=== PATIENT | female | born 1940 | race Caucasian/White ===

== ENCOUNTER 2023-09-24 05:19 | Inpatient (IN) | payer OTHER, BC ==
[2023-09-24] MEDS ORDERED: ACETAMINOPHEN 325 MG TABLET (FP) ONE (05:54)
[2023-09-24] MEDS: ACETAMINOPHEN 500 MG TABLET (FP) PO ONE (06:03)
[2023-09-24 08:19] LABS: BASO % 0.1 % (0-2.0); EOS % 2.2 % (0-4.5); HEMATOCRIT 37.2 % (32.4-45.2); HEMOGLOBIN 12.6 GM/dL (10.7-15.3); LYMPH % 11.8 % (8-40); MCH 31.4 pg (25.7-33.7); MCHC 33.9 g/dl (32.0-36.0); MEAN CELL VOLUME 92.6 fl (80-96); MEAN PLT VOLUME 7.6 fl (7.5-11.1); MONO % 7.9 % (3.8-10.2); PLATELET COUNT 246 10^3/uL (134-434); RBC 4.02 M/mm3 (3.60-5.2); RDW 13.2 % (11.6-15.6); WHITE BLOOD COUNT 9.8 K/mm3 (4.0-10.0)
[2023-09-24 08:21] LABS: EPI CELLS 9 /uL (0-25.1); HYALINE CASTS 0 /uL (0-3.1); PH,URINE 7.5 (5.0-8.0); URINE APPEARANCE CLEAR; URINE BACTERIA 525 /uL (0-1359); URINE BILIRUBIN NEGATIVE (NEGATIVE); URINE COLOR YELLOW; URINE GLUCOSE (UA) NEGATIVE (NEGATIVE); URINE KETONE NEGATIVE (NEGATIVE); URINE LEUK ESTERASE TRACE (NEGATIVE); URINE NITRITE NEGATIVE (NEGATIVE); URINE PROTEIN NEGATIVE (NEGATIVE); URINE UROBILINOGEN 0.2 mg/dL (0.2-1.0); URINE WBC 9 /uL (0-25.8)
[2023-09-24 08:27] LABS: INR 1.05 (0.83-1.09); PROTHROMBIN TIME (PATIENT) 12.2 SEC (9.7-13.0)
[2023-09-24 08:29] LABS: ACTIVATED PTT 31.9 SECONDS (25.2-36.5)
[2023-09-24 08:42] LABS: POTASSIUM 4.1 mmol/L (3.5-5.1)
[2023-09-24 08:43] LABS: CALCIUM 8.6 mg/dL (8.5-10.1)
[2023-09-24 08:44] LABS: URINE RBC 24 /uL (0-23.9)
[2023-09-24 08:45] LABS: ALBUMIN 3.2 g/dl (3.4-5.0); BLOOD UREA NITROGEN 19.3 mg/dL (7-18); MAGNESIUM 2.1 mg/dL (1.8-2.4)
[2023-09-24 08:48] LABS: CREATININE 0.8 mg/dL (0.55-1.3)
[2023-09-24 08:49] LABS: TOT PROT 6.5 g/dl (6.4-8.2)
[2023-09-24 08:50] LABS: BILIRUBIN,TOTAL 0.4 mg/dL (0.2-1)
[2023-09-24] MEDS ORDERED: AZITHROMYCIN IVPB 500 MG/250 ML BAG IVPB ONE (10:07)
[2023-09-24] MEDS ORDERED: CEFTRIAXONE 1 GM/50 ML BAG ONE (10:07)
[2023-09-24] MEDS: CEFTRIAXONE 1,000 MG in DEXTROSE 5%-WATER - 50 ML IVPB ONE (10:15)
[2023-09-24] MEDS ORDERED: ACETAMINOPHEN 325 MG TABLET (FP) PO PRN (10:27)
[2023-09-24] MEDS: AZITHROMYCIN IVPB 500 MG in DEXTROSE 5%-WATER - 250 ML IVPB ONE (11:02)
[2023-09-24] MEDS ORDERED: PANTOPRAZOLE 40 MG TABLET PO ONE (11:08)
[2023-09-24] MEDS ORDERED: ENOXAPARIN NA (PORCINE) 40 MG/0.4 ML DISP.SYRIN SQ ONE (11:08)
[2023-09-24] MEDS ORDERED: LOSARTAN POTASSIUM 50 MG TABLET ONE (11:08)
[2023-09-24] MEDS: PANTOPRAZOLE 40 MG TABLET PO SCH (11:12)
[2023-09-24] MEDS: ENOXAPARIN NA (PORCINE) 40 MG/0.4 ML DISP.SYRIN SQ SCH (11:12)
[2023-09-24] MEDS: LOSARTAN POTASSIUM 50 MG TABLET PO ONE ×2 (11:13→14:58)
[2023-09-24 12:27] VITALS: BMI 22.0
[2023-09-24] MEDS ORDERED: CEFTRIAXONE 1 GM in DEXTROSE 5%-WATER - 50 ML IVPB SCH (15:30)
[2023-09-25] MEDS: LOSARTAN POTASSIUM 50 MG TABLET PO SCH (10:21)
[2023-09-25] MEDS: AZITHROMYCIN IVPB 500 MG/250 ML BAG IVPB SCH (10:22)
[2023-09-25] MEDS: CEFTRIAXONE 1 GM in DEXTROSE 5%-WATER - 50 ML IVPB SCH (10:22)
[2023-09-27] MEDS: AZITHROMYCIN 250 MG TABLET PO SCH (09:49)
[2023-09-27] MEDS: CEFUROXIME AXETIL 250 MG TABLET PO SCH (13:17)
[2023-09-28 07:14] VITALS: BP 141/69; PULSE 71; RESP 18; TEMP 97.8
== END 2023-09-28 12:54 | disposition home or self-care (01) | DRG 195 ==
LOC: JER 05:19 → JERBED 10:12 → J7W 11:58
PROVIDERS: ADMIT Internal Medicine; ATTEND Internal Medicine
DX: J18.9 Pneumonia, unspecified organism (principal); E78.5 Hyperlipidemia, unspecified; I10 Essential (primary) hypertension; K21.9 Gastro-esophageal reflux disease without esophagitis; M62.81 Muscle weakness (generalized); F03.90 Unspecified dementia, unspecified severity, without behavioral disturbance, psychotic disturbance, mood disturbance, and anxiety; I35.0 Nonrheumatic aortic (valve) stenosis; E03.9 Hypothyroidism, unspecified; M25.551 Pain in right hip; R91.1 Solitary pulmonary nodule; Y92.092 Bedroom in other non-institutional residence as the place of occurrence of the external cause; W17.89XA Other fall from one level to another, initial encounter; Y99.9 Unspecified external cause status
CPT/HCPCS: 0241U-QW; 36415; 70450-TC; 71045-TC-FY; 71250-TC; 72125-TC; 72170-TC-FY; 73521-TC-FY; 80053; 81003; 83605; 83735; 84484; 85025; 85610; 85730; 87040; 87086; 87186; 87899; 93005; 93010; 93306-TC; 97116-GP; 97161-GP; 99285-25

== ENCOUNTER 2023-10-31 18:37 | Emergency (ER) | payer OTHER, BC ==
[2023-10-31 18:55] VITALS: BP 164/84; PULSE 76; RESP 19; TEMP 98.5; BMI 23.3
[2023-10-31] MEDS ORDERED: ACETAMINOPHEN 500 MG TABLET (FP) ONE (20:55)
[2023-10-31] MEDS: ACETAMINOPHEN 500 MG TABLET (FP) PO ONE (21:01)
== END 2023-11-01 02:53 ==
LOC: JER 18:37
DX: M25.551 Pain in right hip (principal); M54.2 Cervicalgia; W01.0XXA Fall on same level from slipping, tripping and stumbling without subsequent striking against object, initial encounter
CPT/HCPCS: 70450-TC; 72125-TC; 72170-TC-FY; 73521-TC-FY; 99284-25

== ENCOUNTER 2024-02-23 14:44 | Inpatient (IN) | payer OTHER, BC ==
[2024-02-23] MEDS ORDERED: ACETAMINOPHEN 325 MG TABLET (FP) ONE (15:45)
[2024-02-23 16:02] VITALS: BMI 21.9
[2024-02-23] MEDS: ACETAMINOPHEN 500 MG TABLET (FP) PO ONE (16:37)
[2024-02-23 17:08] LABS: BASO % 0.4 % (0-2.0); EOS % 3.5 % (0-4.5); HEMATOCRIT 38.7 % (32.4-45.2); HEMOGLOBIN 12.9 GM/dL (10.7-15.3); LYMPH % 14.4 % (8-40); MCH 31.4 pg (25.7-33.7); MCHC 33.4 g/dl (32.0-36.0); MONO % 11.5 % (3.8-10.2); NEUT % 70.2 % (42.8-82.8); PLATELET COUNT 274 10^3/uL (134-434); RBC 4.12 M/mm3 (3.60-5.2); RDW 13.1 % (11.6-15.6); WHITE BLOOD COUNT 11.4 K/mm3 (4.0-10.0)
[2024-02-23 17:21] LABS: POTASSIUM 5.1 mmol/L (3.5-5.1)
[2024-02-23 17:23] LABS: ALBUMIN 3.5 g/dl (3.4-5.0); BLOOD UREA NITROGEN 22.2 mg/dL (7-18)
[2024-02-23 17:26] LABS: CREATININE 0.8 mg/dL (0.55-1.3)
[2024-02-23 17:28] LABS: BILIRUBIN,TOTAL 0.8 mg/dL (0.2-1); TOT PROT 7.5 g/dl (6.4-8.2)
[2024-02-23 17:32] LABS: EPI CELLS 5 /uL (0-25.1); HYALINE CASTS 0 /uL (0-3.1); PH,URINE 6.5 (5.0-8.0); URINE APPEARANCE CLEAR; URINE BACTERIA 11 /uL (0-1359); URINE BILIRUBIN NEGATIVE (NEGATIVE); URINE COLOR YELLOW; URINE GLUCOSE (UA) NEGATIVE (NEGATIVE); URINE KETONE NEGATIVE (NEGATIVE); URINE LEUK ESTERASE 1+ (NEGATIVE); URINE NITRITE NEGATIVE (NEGATIVE); URINE PROTEIN NEGATIVE (NEGATIVE); URINE RBC 45 /uL (0-23.9); URINE WBC 174 /uL (0-25.8)
[2024-02-23] MEDS: LACTATED RINGERS SOLUTION 1,000 ML/1,000 ML INFUS.BAG IV SCH (17:50)
[2024-02-23] MEDS ORDERED: CEFTRIAXONE 1 GM/50 ML BAG ONE (18:25)
[2024-02-23] MEDS: CEFTRIAXONE 1,000 MG in DEXTROSE 5%-WATER - 50 ML IVPB ONE (18:41)
[2024-02-23] MEDS ORDERED: D5-1/2NS+10 MEQ KCL - 10 MEQ/1,000 ML INFUS.BAG IV SCH (19:45)
[2024-02-23] MEDS: D5-1/2NS+10 MEQ KCL - 10 MEQ/1,000 ML INFUS.BAG IV SCH (20:06)
[2024-02-23] MEDS ORDERED: LIDOCAINE 5% TOPICAL PATCH ONE (20:07)
[2024-02-23] MEDS ORDERED: PANTOPRAZOLE 40 MG TABLET PO ONE (20:07)
[2024-02-23] MEDS: LIDOCAINE 5% TOPICAL PATCH TP SCH (20:10)
[2024-02-23] MEDS: PANTOPRAZOLE 40 MG TABLET PO SCH (20:10)
[2024-02-23] MEDS ORDERED: LISINOPRIL 10 MG TABLET PO SCH (21:06)
[2024-02-23] MEDS: ACETAMINOPHEN 325 MG TABLET (FP) PO PRN (22:49)
[2024-02-23] MEDS: MIRTAZAPINE 15 MG TABLET (FP) PO SCH (22:50)
[2024-02-23] MEDS: ATORVASTATIN CA 20 MG TABLET (FP) PO SCH (22:51)
[2024-02-23] MEDS: LIDOCAINE PATCH REMOVAL MC SCH (22:51)
[2024-02-23] MEDS: MELATONIN 1 MG TABLET PO SCH (22:51)
[2024-02-23] MEDS: MEMANTINE HCL 10 MG TABLET (FP) PO SCH (22:51)
[2024-02-23] MEDS: RIVASTIGMINE 9.5 MG/24 HOURS TRANSDERMAL PATCH TD SCH (23:01)
[2024-02-23] MEDS: METOPROLOL TARTRATE 5 MG/5 ML VIAL IVPUSH PRN (23:14)
[2024-02-24] MEDS: LEVOTHYROXINE NA 50 MCG TABLET (FP) PO SCH (06:35)
[2024-02-24] MEDS: LACOSAMIDE 100 MG TABLET PO SCH (08:12)
[2024-02-24 08:16] LABS: BASO % 0.5 % (0-2.0); EOS % 4.5 % (0-4.5); HEMATOCRIT 39.2 % (32.4-45.2); HEMOGLOBIN 13.3 GM/dL (10.7-15.3); LYMPH % 10.8 % (8-40); MCH 31.9 pg (25.7-33.7); MCHC 33.8 g/dl (32.0-36.0); MEAN CELL VOLUME 94.2 fl (80-96); MEAN PLT VOLUME 7.8 fl (7.5-11.1); MONO % 11.1 % (3.8-10.2); NEUT % 73.1 % (42.8-82.8); PLATELET COUNT 263 10^3/uL (134-434); RBC 4.17 M/mm3 (3.60-5.2); RDW 12.4 % (11.6-15.6); WHITE BLOOD COUNT 10.1 K/mm3 (4.0-10.0)
[2024-02-24 08:21] LABS: POTASSIUM 3.7 mmol/L (3.5-5.1)
[2024-02-24 08:23] LABS: CALCIUM 8.8 mg/dL (8.5-10.1)
[2024-02-24 08:24] LABS: BLOOD UREA NITROGEN 15.9 mg/dL (7-18)
[2024-02-24 08:36] LABS: CREATININE 0.6 mg/dL (0.55-1.3)
[2024-02-24 09:26] LABS: ERYTHROCYTE SEDIMENTATION RATE 20 mm/hr (0-30)
[2024-02-24] MEDS ORDERED: metoPROLOL SUCCINATE 25 MG TAB.SR.24H (FP) PO SCH (10:00)
[2024-02-24] MEDS ORDERED: LISINOPRIL 10 MG TABLET PO SCH (10:00)
[2024-02-24] MEDS: ASPIRIN COATED 81 MG TABLET.EC PO SCH (10:15)
[2024-02-24] MEDS: LISINOPRIL 20 MG TABLET PO SCH (10:15)
[2024-02-24] MEDS: HEPARIN NA (PORCINE) 5,000 UNITS/ML 1ML VIAL SQ SCH (10:15)
[2024-02-24] MEDS: metoPROLOL SUCCINATE 25 MG TAB.SR.24H (FP) PO SCH (10:16)
[2024-02-24] MEDS: LACOSAMIDE 50 MG TABLET PO SCH (10:16)
[2024-02-24] MEDS: CEFTRIAXONE 1 GM in DEXTROSE 5%-WATER - 50 ML IVPB SCH (17:02)
[2024-02-24] MEDS: POTASSIUM CHLORIDE 10 MEQ in DEXTROSE 5%-0.45% SALINE 1,000 ML IV SCH (18:27)
[2024-02-24] MEDS: D5-1/2NS+10 MEQ KCL - 10 MEQ/1,000 ML INFUS.BAG IV SCH (19:14)
[2024-02-24] MEDS: DEXTROSE 5%-0.45% SALINE 1,000 ML with POTASSIUM CHLORIDE 10 MEQ IV SCH (19:15)
[2024-02-25] MEDS: LACOSAMIDE 100 MG TABLET PO SCH (11:26)
[2024-02-25] MEDS: LISINOPRIL 5 MG TABLET PO ONE (11:26)
[2024-02-25] MEDS ORDERED: D5-1/2NS+10 MEQ KCL - 10 MEQ/1,000 ML INFUS.BAG IV SCH (12:00)
[2024-02-25 12:03] LABS: BASO % 0.3 % (0-2.0); EOS % 3.8 % (0-4.5); HEMATOCRIT 38.7 % (32.4-45.2); HEMOGLOBIN 13.2 GM/dL (10.7-15.3); LYMPH % 13.1 % (8-40); MCH 31.7 pg (25.7-33.7); MCHC 34.1 g/dl (32.0-36.0); MEAN CELL VOLUME 93.1 fl (80-96); MEAN PLT VOLUME 7.3 fl (7.5-11.1); MONO % 12.9 % (3.8-10.2); NEUT % 69.9 % (42.8-82.8); PLATELET COUNT 294 10^3/uL (134-434); RBC 4.15 M/mm3 (3.60-5.2); WHITE BLOOD COUNT 10.6 K/mm3 (4.0-10.0)
[2024-02-25 12:28] LABS: POTASSIUM 3.9 mmol/L (3.5-5.1)
[2024-02-25 12:30] LABS: BLOOD UREA NITROGEN 14.7 mg/dL (7-18); CALCIUM 8.8 mg/dL (8.5-10.1)
[2024-02-25 12:34] LABS: CREATININE 0.7 mg/dL (0.55-1.3)
[2024-02-25] MEDS: D5-1/2NS+10 MEQ KCL - 10 MEQ/1,000 ML INFUS.BAG IV SCH (13:38)
[2024-02-25] MEDS: POLYETHYLENE GLYCOL (HEALTHYLAX) 3350 17 GM PACKET PO SCH (18:05)
[2024-02-25] MEDS: DOCUSATE SODIUM 100 MG CAPSULE (FP) PO SCH (21:41)
[2024-02-26 07:25] LABS: BASO % 0.4 % (0-2.0); EOS % 1.7 % (0-4.5); HEMOGLOBIN 14.2 GM/dL (10.7-15.3); LYMPH % 7.5 % (8-40); MCH 32.2 pg (25.7-33.7); MCHC 34.5 g/dl (32.0-36.0); MEAN CELL VOLUME 93.2 fl (80-96); MEAN PLT VOLUME 7.7 fl (7.5-11.1); MONO % 10.8 % (3.8-10.2); NEUT % 79.6 % (42.8-82.8); PLATELET COUNT 291 10^3/uL (134-434); RDW 12.7 % (11.6-15.6); WHITE BLOOD COUNT 13.4 K/mm3 (4.0-10.0)
[2024-02-26 07:31] LABS: POTASSIUM 3.9 mmol/L (3.5-5.1)
[2024-02-26 07:33] LABS: CALCIUM 8.7 mg/dL (8.5-10.1)
[2024-02-26 07:37] LABS: CREATININE 0.8 mg/dL (0.55-1.3)
[2024-02-26] MEDS: LISINOPRIL 20 MG, LISINOPRIL 10 MG PO SCH (09:27)
[2024-02-26] MEDS ORDERED: LISINOPRIL 20 MG TABLET PO SCH (10:00)
[2024-02-26] MEDS ORDERED: LISINOPRIL 20 MG, LISINOPRIL 10 MG PO SCH (10:00)
[2024-02-27 07:22] LABS: BASO % 0.4 % (0-2.0); EOS % 1.1 % (0-4.5); HEMATOCRIT 38.2 % (32.4-45.2); LYMPH % 15.2 % (8-40); MCH 31.9 pg (25.7-33.7); MCHC 34.1 g/dl (32.0-36.0); MEAN CELL VOLUME 93.5 fl (80-96); MEAN PLT VOLUME 7.4 fl (7.5-11.1); MONO % 14.6 % (3.8-10.2); NEUT % 68.7 % (42.8-82.8); PLATELET COUNT 296 10^3/uL (134-434); RBC 4.08 M/mm3 (3.60-5.2); RDW 12.5 % (11.6-15.6); WHITE BLOOD COUNT 13.3 K/mm3 (4.0-10.0)
[2024-02-27] MEDS: hydrALAZINE HCL 10 MG TABLET PO SCH (14:20)
[2024-02-28] MEDS ORDERED: LIDOCAINE PATCH REMOVAL MC SCH (00:41)
[2024-02-28] MEDS ORDERED: METOPROLOL TARTRATE 5 MG/5 ML VIAL IVPUSH PRN (00:41)
[2024-02-28] MEDS: LEVOTHYROXINE NA 50 MCG TABLET (FP) PO SCH (06:19)
[2024-02-28] MEDS: PANTOPRAZOLE 40 MG TABLET PO SCH (06:19)
[2024-02-28] MEDS: LACOSAMIDE 50 MG TABLET PO SCH (10:33)
[2024-02-28] MEDS: CEFTRIAXONE 1 GM in DEXTROSE 5%-WATER - 50 ML IVPB SCH (10:33)
[2024-02-28] MEDS: LISINOPRIL 20 MG TABLET PO SCH (10:34)
[2024-02-28] MEDS: MEMANTINE HCL 10 MG TABLET (FP) PO SCH (10:34)
[2024-02-28] MEDS: ASPIRIN COATED 81 MG TABLET.EC PO SCH (10:34)
[2024-02-28] MEDS: hydrALAZINE HCL 25 MG TABLET (FP) PO SCH (10:35)
[2024-02-28] MEDS: HEPARIN NA (PORCINE) 5,000 UNITS/ML 1ML VIAL SQ SCH (10:35)
[2024-02-28] MEDS: LIDOCAINE 5% TOPICAL PATCH TP SCH (10:38)
[2024-02-28 10:47] LABS: BASO % 0.2 % (0-2.0); HEMATOCRIT 37.6 % (32.4-45.2); HEMOGLOBIN 12.8 GM/dL (10.7-15.3); MCH 31.5 pg (25.7-33.7); MEAN CELL VOLUME 92.6 fl (80-96); MEAN PLT VOLUME 7.7 fl (7.5-11.1); MONO % 13.5 % (3.8-10.2); NEUT % 82.3 % (42.8-82.8); PLATELET COUNT 311 10^3/uL (134-434); RBC 4.06 M/mm3 (3.60-5.2); RDW 12.2 % (11.6-15.6); WHITE BLOOD COUNT 18.1 K/mm3 (4.0-10.0)
[2024-02-28 11:45] LABS: BLOOD UREA NITROGEN 15.7 mg/dL (7-18); CALCIUM 8.8 mg/dL (8.5-10.1)
[2024-02-28 11:49] LABS: CREATININE 0.7 mg/dL (0.55-1.3)
[2024-02-28] MEDS: MELATONIN 1 MG TABLET PO SCH (21:25)
[2024-02-28] MEDS: ATORVASTATIN CA 20 MG TABLET (FP) PO SCH (21:26)
[2024-02-28] MEDS: MIRTAZAPINE 15 MG TABLET (FP) PO SCH (21:26)
[2024-02-28] MEDS: RIVASTIGMINE 9.5 MG/24 HOURS TRANSDERMAL PATCH TD SCH (21:30)
[2024-02-28] MEDS: LIDOCAINE PATCH REMOVAL MC SCH (23:00)
[2024-02-29 08:40] LABS: BASO % 0.5 % (0-2.0); EOS % 0.3 % (0-4.5); HEMATOCRIT 35.4 % (32.4-45.2); LYMPH % 9.5 % (8-40); MCH 31.5 pg (25.7-33.7); MCHC 33.8 g/dl (32.0-36.0); MEAN CELL VOLUME 93.2 fl (80-96); MEAN PLT VOLUME 7.6 fl (7.5-11.1); MONO % 14.4 % (3.8-10.2); NEUT % 75.3 % (42.8-82.8); PLATELET COUNT 322 10^3/uL (134-434); RDW 12.2 % (11.6-15.6); WHITE BLOOD COUNT 15.2 K/mm3 (4.0-10.0)
[2024-02-29] MEDS: CEFUROXIME AXETIL 500 MG TABLET PO SCH (10:15)
[2024-03-01] MEDS: ACETAMINOPHEN 325 MG TABLET (FP) PO PRN (06:49)
[2024-03-01 10:25] LABS: BASO % 0.4 % (0-2.0); EOS % 0.6 % (0-4.5); HEMATOCRIT 36.5 % (32.4-45.2); HEMOGLOBIN 12.3 GM/dL (10.7-15.3); LYMPH % 7.6 % (8-40); MCH 31.7 pg (25.7-33.7); MCHC 33.8 g/dl (32.0-36.0); MEAN CELL VOLUME 93.8 fl (80-96); MEAN PLT VOLUME 7.5 fl (7.5-11.1); MONO % 11.6 % (3.8-10.2); NEUT % 79.8 % (42.8-82.8); PLATELET COUNT 403 10^3/uL (134-434); RBC 3.89 M/mm3 (3.60-5.2); RDW 12.4 % (11.6-15.6); WHITE BLOOD COUNT 12.9 K/mm3 (4.0-10.0)
[2024-03-02 09:26] LABS: EPI CELLS >36 /uL (0-25.1); HYALINE CASTS 2 /uL (0-3.1); PH,URINE 6.5 (5.0-8.0); URINE APPEARANCE CLOUDY; URINE BACTERIA 2168 /uL (0-1359); URINE BILIRUBIN NEGATIVE (NEGATIVE); URINE COLOR YELLOW; URINE GLUCOSE (UA) NEGATIVE (NEGATIVE); URINE KETONE NEGATIVE (NEGATIVE); URINE LEUK ESTERASE TRACE (NEGATIVE); URINE NITRITE NEGATIVE (NEGATIVE); URINE PROTEIN TRACE (NEGATIVE); URINE RBC 20 /uL (0-23.9); URINE WBC 14 /uL (0-25.8)
[2024-03-02 09:49] LABS: URINE CRYSTALS PRESENT /hpf; YEAST NOT PRESENT (NEGATIVE)
[2024-03-02 09:55] LABS: BASO % 0.3 % (0-2.0); EOS % 3.4 % (0-4.5); HEMOGLOBIN 12.4 GM/dL (10.7-15.3); LYMPH % 10.3 % (8-40); MCH 31.4 pg (25.7-33.7); MCHC 33.5 g/dl (32.0-36.0); MEAN CELL VOLUME 93.5 fl (80-96); MEAN PLT VOLUME 7.1 fl (7.5-11.1); PLATELET COUNT 400 10^3/uL (134-434); RBC 3.95 M/mm3 (3.60-5.2); RDW 12.8 % (11.6-15.6); WHITE BLOOD COUNT 10.6 K/mm3 (4.0-10.0)
[2024-03-03 04:33] VITALS: RESP 20
[2024-03-03 08:45] LABS: BASO % 0.8 % (0-2.0); EOS % 8.5 % (0-4.5); HEMATOCRIT 36.2 % (32.4-45.2); HEMOGLOBIN 12.4 GM/dL (10.7-15.3); LYMPH % 18.4 % (8-40); MCH 31.9 pg (25.7-33.7); MCHC 34.2 g/dl (32.0-36.0); MEAN CELL VOLUME 93.3 fl (80-96); MONO % 9.5 % (3.8-10.2); NEUT % 62.8 % (42.8-82.8); PLATELET COUNT 433 10^3/uL (134-434); RBC 3.88 M/mm3 (3.60-5.2); RDW 12.5 % (11.6-15.6)
[2024-03-03 10:03] LABS: ERYTHROCYTE SEDIMENTATION RATE 79 mm/hr (0-30)
[2024-03-04 10:16] LABS: BASO % 1.1 % (0-2.0); EOS % 6.1 % (0-4.5); HEMATOCRIT 36.1 % (32.4-45.2); HEMOGLOBIN 12.2 GM/dL (10.7-15.3); LYMPH % 17.5 % (8-40); MCH 31.6 pg (25.7-33.7); MCHC 33.8 g/dl (32.0-36.0); MEAN CELL VOLUME 93.4 fl (80-96); MONO % 7.6 % (3.8-10.2); NEUT % 67.7 % (42.8-82.8); PLATELET COUNT 469 10^3/uL (134-434); RBC 3.86 M/mm3 (3.60-5.2); RDW 12.2 % (11.6-15.6); WHITE BLOOD COUNT 10.3 K/mm3 (4.0-10.0)
[2024-03-04] MEDS ORDERED: NITROFURANTOIN MONOHYD/M-CRYST 100 MG CAPSULE PO SCH (11:30)
[2024-03-04 17:56] VITALS: BP 131/64; PULSE 64; TEMP 97.8
== END 2024-03-04 19:45 | DRG 690 ==
LOC: JER 14:44 → JERBED 19:18 → OBSVTOIN 19:26 → J4W 22:20 → J6S 02-27 23:30
PROVIDERS: ADMIT Internal Medicine; ATTEND Internal Medicine
DX: N39.0 Urinary tract infection, site not specified (principal); E86.0 Dehydration; I10 Essential (primary) hypertension; J44.9 Chronic obstructive pulmonary disease, unspecified; G40.909 Epilepsy, unspecified, not intractable, without status epilepticus; F03.90 Unspecified dementia, unspecified severity, without behavioral disturbance, psychotic disturbance, mood disturbance, and anxiety; E03.9 Hypothyroidism, unspecified; E78.5 Hyperlipidemia, unspecified; R55 Syncope and collapse; B95.2 Enterococcus as the cause of diseases classified elsewhere; K21.9 Gastro-esophageal reflux disease without esophagitis
CPT/HCPCS: 36415; 70450-TC; 71045-TC-FY; 72070-TC-FY; 72100-TC-FY; 72125-TC; 72170-TC-FY; 73502-TC-LT-FY; 73502-TC-RT-FY; 80048; 80053; 81003; 84484; 85025; 85651; 86140; 87040; 87086; 87186; 93005; 93010; 97116-GP; 97162-GP; 99285-25; G0378; J1644

== ENCOUNTER 2024-12-05 18:35 | Inpatient (IN) | payer OTHER, BC ==
[2024-12-05 19:25] VITALS: BMI 21.0
[2024-12-05] MEDS ORDERED: ACETAMINOPHEN 500 MG TABLET (FP) ONE (19:41)
[2024-12-05] MEDS: ACETAMINOPHEN 500 MG TABLET (FP) PO ONE (19:46)
[2024-12-05 20:18] LABS: ABSOLUTE IMMATURE GRANULOCYTES 0.04 x10^3/uL (0.0-0.031); BASOPHILS # 0.06 x10^3/uL (0.01-0.08); EOSINOPHIL % 2.3 % (0.7-5.8); EOSINOPHILS # 0.22 x10^3/uL (0.04-0.36); HEMATOCRIT 37.8 % (34.1-44.9); HEMOGLOBIN 12.3 g/dL (11.2-15.7); MCHC 32.5 g/dl (32.2-35.5); MEAN CELL VOLUME 97.7 fl (79.4-94.8); MEAN PLT VOLUME 9.3 fl (9.4-12.3); MONOCYTE # 0.89 x10^3/uL (0.24-0.86); MONOCYTE % 9.4 % (4.7-12.5); PLATELET COUNT 303 x10^3/uL (182-369); RDW 12.4 % (12.5-17.0)
[2024-12-05 20:23] LABS: EPI CELLS 9 /uL (0-25.1); HYALINE CASTS 0 /uL (0-3.1); URINE APPEARANCE CLEAR; URINE BACTERIA >9,000 /uL (0-1359); URINE BILIRUBIN NEGATIVE (NEGATIVE); URINE COLOR YELLOW; URINE GLUCOSE (UA) NEGATIVE (NEGATIVE); URINE KETONE NEGATIVE (NEGATIVE); URINE LEUK ESTERASE 1+ (NEGATIVE); URINE NITRITE POSITIVE (NEGATIVE); URINE PROTEIN NEGATIVE (NEGATIVE); URINE UROBILINOGEN 0.2 mg/dL (0.2-1.0); URINE WBC 31 /uL (0-25.8)
[2024-12-05 20:25] LABS: INR 1.02 (0.83-1.09); PROTHROMBIN TIME (PATIENT) 11.1 SEC (9.7-13.0)
[2024-12-05 20:28] LABS: ACTIVATED PTT 31.5 SECONDS (25.2-36.5)
[2024-12-05 20:33] LABS: POTASSIUM 4.6 mmol/L (3.5-5.1)
[2024-12-05 20:36] LABS: ALBUMIN 3.4 g/dl (3.4-5.0); BLOOD UREA NITROGEN 26.3 mg/dL (7-18); CALCIUM 9.5 mg/dL (8.5-10.1); MAGNESIUM 2.4 mg/dL (1.8-2.4)
[2024-12-05 20:39] LABS: CREATININE 0.9 mg/dL (0.55-1.3); PHOSPHOROUS 4.6 mg/dL (2.5-4.9)
[2024-12-05 20:41] LABS: BILIRUBIN,TOTAL 0.2 mg/dL (0.2-1); TOT PROT 6.9 g/dl (6.4-8.2)
[2024-12-05] MEDS: SODIUM CHLORIDE 0.9% 500 ML INFUS.BAG IV ONE (20:54)
[2024-12-05] MEDS: CEFTRIAXONE 1,000 MG in DEXTROSE 5%-WATER - 50 ML IVPB ONE (20:54)
[2024-12-05] MEDS: PIPERACILLIN/TAZOB 3.375 GM 3.375 GM in DEXTROSE 5%-WATER - 50 ML IVPB ONE (20:54)
[2024-12-05 21:26] LABS: URINE RBC 277.7 /uL (0-23.9)
[2024-12-05] MEDS ORDERED: MIRTAZAPINE 15 MG TABLET (FP) ONE (22:19)
[2024-12-05] MEDS ORDERED: DOCUSATE SODIUM 100 MG CAPSULE (FP) PO ONE (22:19)
[2024-12-05] MEDS ORDERED: ATORVASTATIN CA 20 MG TABLET (FP) ONE (22:19)
[2024-12-05] MEDS: ATORVASTATIN CA 20 MG TABLET (FP) PO SCH (22:36)
[2024-12-05] MEDS: MIRTAZAPINE 15 MG TABLET (FP) PO SCH (22:36)
[2024-12-05] MEDS: HEPARIN NA (PORCINE) 5,000 UNITS/ML 1ML VIAL SQ SCH (22:37)
[2024-12-05] MEDS: PANTOPRAZOLE 20 MG TABLET PO SCH (22:37)
[2024-12-05] MEDS ORDERED: D5-1/2NS+20 MEQ KCL - 20 MEQ/1,000 ML INFUS.BAG IV SCH (22:45)
[2024-12-06] MEDS: METOPROLOL TARTRATE 5 MG/5 ML VIAL IVPUSH PRN (03:58)
[2024-12-06] MEDS: ACETAMINOPHEN 325 MG TABLET (FP) PO PRN (03:58)
[2024-12-06] MEDS: LEVOTHYROXINE NA 50 MCG TABLET (FP) PO SCH (06:25)
[2024-12-06] MEDS: D5-1/2NS+20 MEQ KCL - 20 MEQ/1,000 ML INFUS.BAG IV SCH (06:28)
[2024-12-06 07:30] LABS: ABSOLUTE IMMATURE GRANULOCYTES 0.03 x10^3/uL (0.0-0.031); BASOPHILS # 0.05 x10^3/uL (0.01-0.08); EOSINOPHIL % 2.4 % (0.7-5.8); EOSINOPHILS # 0.23 x10^3/uL (0.04-0.36); HEMATOCRIT 38.1 % (34.1-44.9); HEMOGLOBIN 12.2 g/dL (11.2-15.7); MEAN CELL VOLUME 96.7 fl (79.4-94.8); MEAN PLT VOLUME 9.4 fl (9.4-12.3); MONOCYTE % 8.2 % (4.7-12.5); PLATELET COUNT 285 x10^3/uL (182-369); RDW 11.9 % (12.5-17.0)
[2024-12-06 07:58] LABS: POTASSIUM 4.1 mmol/L (3.5-5.1)
[2024-12-06 08:09] LABS: BLOOD UREA NITROGEN 19.6 mg/dL (7-18); CALCIUM 9.3 mg/dL (8.5-10.1)
[2024-12-06 08:13] LABS: CREATININE 0.8 mg/dL (0.55-1.3)
[2024-12-06] MEDS: LISINOPRIL 20 MG TABLET PO SCH (09:56)
[2024-12-06] MEDS: MEMANTINE HCL 10 MG TABLET (FP) PO SCH (09:56)
[2024-12-06] MEDS: ASPIRIN COATED 81 MG TABLET.EC PO SCH (09:57)
[2024-12-06] MEDS: SENNOSIDES 8.6MG TABLET (FP) PO SCH (09:57)
[2024-12-06] MEDS: POLYETHYLENE GLYCOL (HEALTHYLAX) 3350 17 GM PACKET PO SCH (09:57)
[2024-12-06] MEDS ORDERED: THIAMINE 100 MG TABLET PO SCH (10:00)
[2024-12-06] MEDS ORDERED: LACOSAMIDE 50 MG TABLET PO SCH (10:00)
[2024-12-06] MEDS: PIPERACILLIN/TAZOB 3.375 GM 3.375 GM in DEXTROSE 5%-WATER - 50 ML IVPB SCH (18:19)
[2024-12-06] MEDS: MELATONIN 1 MG TABLET PO SCH (21:24)
[2024-12-06] MEDS ORDERED: DOCUSATE SODIUM 100 MG CAPSULE (FP) PO SCH (22:00)
[2024-12-06] MEDS ORDERED: SENNOSIDES/DOCUSATE COMBO (SENNA PLUS) TABLET (UD) PO SCH (22:00)
[2024-12-07 06:58] LABS: ABSOLUTE IMMATURE GRANULOCYTES 0.02 x10^3/uL (0.0-0.031); BASOPHILS # 0.08 x10^3/uL (0.01-0.08); EOSINOPHIL % 4.8 % (0.7-5.8); EOSINOPHILS # 0.42 x10^3/uL (0.04-0.36); HEMATOCRIT 38.7 % (34.1-44.9); HEMOGLOBIN 12.6 g/dL (11.2-15.7); MCHC 32.6 g/dl (32.2-35.5); MEAN CELL VOLUME 96.5 fl (79.4-94.8); MEAN PLT VOLUME 9.5 fl (9.4-12.3); MONOCYTE # 0.88 x10^3/uL (0.24-0.86); MONOCYTE % 10.1 % (4.7-12.5); PLATELET COUNT 301 x10^3/uL (182-369); RDW 11.9 % (12.5-17.0)
[2024-12-07 07:22] LABS: POTASSIUM 4.3 mmol/L (3.5-5.1)
[2024-12-07 07:25] LABS: CALCIUM 9.8 mg/dL (8.5-10.1)
[2024-12-07 07:26] LABS: BLOOD UREA NITROGEN 17.1 mg/dL (7-18)
[2024-12-07 07:29] LABS: CREATININE 0.8 mg/dL (0.55-1.3)
[2024-12-07] MEDS: hydrALAZINE HCL 10 MG TABLET PO SCH (13:28)
[2024-12-09] MEDS: AMOX TR/POT CLAV 875MG/125MG TABLETS (FP) PO SCH (10:41)
[2024-12-09 17:22] VITALS: BP 120/51; PULSE 57; RESP 18; TEMP 97.9
== END 2024-12-09 18:06 | DRG 690 ==
LOC: JER 18:35 → JERBED 21:53 → J4W 12-06 02:54
PROVIDERS: ADMIT Internal Medicine; ATTEND Internal Medicine
DX: N39.0 Urinary tract infection, site not specified (principal); Z94.0 Kidney transplant status; Z94.4 Liver transplant status; E86.0 Dehydration; J44.9 Chronic obstructive pulmonary disease, unspecified; I10 Essential (primary) hypertension; F03.90 Unspecified dementia, unspecified severity, without behavioral disturbance, psychotic disturbance, mood disturbance, and anxiety; E03.9 Hypothyroidism, unspecified; E78.5 Hyperlipidemia, unspecified; B96.20 Unspecified Escherichia coli [E. coli] as the cause of diseases classified elsewhere; J47.9 Bronchiectasis, uncomplicated; K21.9 Gastro-esophageal reflux disease without esophagitis; R32 Unspecified urinary incontinence; G47.00 Insomnia, unspecified
CPT/HCPCS: 0241U-QW; 36415; 70450-TC; 71045-TC-FY; 71250-TC; 72125-TC; 72170-TC-FY; 80048; 80053; 81003; 82550; 82962; 83735; 84100; 84443; 84484; 85025; 85610; 85730; 86850; 86900; 86901; 87086; 93005; 93010; 97116-GP; 97161-GP; 99285-25